=== PATIENT | male | born 1970 | race American Indian/Alaskan Native ===

== ENCOUNTER 2021-04-11 13:30 | Emergency (ER) | payer BC ==
[2021-04-11 14:02] VITALS: BP 145/85
--- NOTE | 2021-04-11 14:21 | Emergency Department Report ---
ED ENT HPI - General Chief complaint: Earache Stated complaint: EAR ACHE Time Seen by Provider: 04/11/21 14:02 Source: patient Mode of arrival: Ambulatory Limitations: No Limitations - History of Present Illness Initial comments: 50 year old male presents to ED with concern for possible foreign body to left ear. Patient states that for the past 2 weeks he has been having left ear irritation and pain. Reports muffled hearing to the left ear. Patient states that it is worse when he chews. He denies any drainage from the ear any bleeding. Patient states that he has been staying in a hotel for the past few months since moving here and is concerned that he may have bedbugs in his ear. He states that he has been trying to use [id number] eardrops without much relief. He denies any headache, fever, chills, neck pain or any additional symptoms at this time MD complaint: ear pain, foreign body -: week(s) (2) - Related Data Previous Rx's Medication Instructions Recorded Last Taken Type Amoxicillin [Trimox CAP] 500 mg PO Q8H #30 capsule 04/11/21 Unknown Rx Fluticasone [Flonase] 2 spray NS QDAY #1 bottle 04/11/21 Unknown Rx Loratadine [Claritin] 10 mg PO DAILY #30 tablet 04/11/21 Unknown Rx ED Dental HPI - General Chief complaint: Earache Stated complaint: EAR ACHE Time Seen by Provider: 04/11/21 14:02 Source: patient Mode of arrival: Ambulatory Limitations: No Limitations - Related Data Previous Rx's Medication Instructions Recorded Last Taken Type Amoxicillin [Trimox CAP] 500 mg PO Q8H #30 capsule 04/11/21 Unknown Rx Fluticasone [Flonase] 2 spray NS QDAY #1 bottle 04/11/21 Unknown Rx Loratadine [Claritin] 10 mg PO DAILY #30 tablet 04/11/21 Unknown Rx ED Review of Systems ROS: Stated complaint: EAR ACHE Other details as noted in HPI Comment: All other systems reviewed and negative ENT: ear pain Respiratory: denies: cough, shortness of breath, SOB with exertion, SOB at rest, wheezing Cardiovascular: denies: chest pain, palpitations, dyspnea on exertion Gastrointestinal: denies: abdominal pain, nausea, vomiting, diarrhea, constipation, hematemesis, hematochezia Genitourinary: denies: urgency, dysuria, frequency, hematuria, discharge, testicular pain, testicular mass Musculoskeletal: denies: back pain, joint swelling, arthralgia Skin: denies: rash, lesions, change in color, change in hair/nails, pruritus Neurological: denies: headache, weakness, numbness, paresthesias, confusion, abnormal gait, vertigo Psychiatric: denies: anxiety, depression, auditory hallucinations, visual hallucinations, homicidal thoughts ED Past Medical Hx - Past Medical History Previous Medical History?: No - Surgical History Past Surgical History?: No - Medications Home Medications: Home Medications Medication Instructions Recorded Confirmed Last Taken Type Amoxicillin [Trimox CAP] 500 mg PO Q8H #30 capsule 04/11/21 Unknown Rx Fluticasone [Flonase] 2 spray NS QDAY #1 bottle 04/11/21 Unknown Rx Loratadine [Claritin] 10 mg PO DAILY #30 tablet 04/11/21 Unknown Rx ED Physical Exam - General Limitations: No Limitations General appearance: alert, in no apparent distress - Head Head exam: Present: atraumatic, normocephalic, normal inspection - Eye Eye exam: Present: normal appearance, PERRL, EOMI Pupils: Present: normal accommodation - ENT ENT exam: Present: normal exam, mucous membranes moist, TM's normal bilaterally - Expanded ENT Exam Expanded TM/Canal exam: Erythema: Left TM, Bulging: Left TM, Effusion: Left TM Mouth exam: Present: normal external inspection Teeth exam: Present: normal inspection Throat exam: Positive: normal inspection - Neck Neck exam: Present: normal inspection, full ROM. Absent: meningismus - Respiratory Respiratory exam: Present: normal lung sounds bilaterally. Absent: respiratory distress, wheezes, rales, rhonchi ED Course Vital Signs 04/11/21 13:30 Temperature 98.9 F Pulse Rate 89 Respiratory 18 Rate Blood Pressure 145/85 [Left] O2 Sat by Pulse 99 Oximetry Critical care attestation.: If time is entered above; I have spent that time in minutes in the direct care of this critically ill patient, excluding procedure time. ED Disposition Clinical Impression: Eustachian tube dysfunction, Otitis media Disposition: HOME / SELF CARE / HOMELESS Is pt being admited?: No Does the pt Need Aspirin: No Condition: Stable Instructions: Eustachian Tube Dysfunction, Otitis Media, Adult, [id number] Additional Instructions: I recommend that you take Claritin as prescribed, also take the Flonase and take the amoxicillin as prescribed. Recommend that you do not try to put anything in your ear smaller than your elbow. Follow-up with the ENT listed on discharge instructions if your symptoms persist, return to the ER if your symptoms worsen. Prescriptions: Loratadine [Claritin] 10 mg PO DAILY #30 tablet Fluticasone [Flonase] 2 spray NS QDAY #1 bottle Amoxicillin [Trimox CAP] 500 mg PO Q8H #30 capsule Referrals: JIMMY ROMERO MD [Staff Physician] - 7-10 days Time of Disposition: 14:21
== END 2021-04-11 14:55 | disposition home or self-care (01) ==
LOC: EDBD → ED 13:30
DX: H69.92 Unspecified Eustachian tube disorder, left ear (principal); H66.92 Otitis media, unspecified, left ear; Z79.899 Other long term (current) drug therapy
CPT/HCPCS: 99281